=== PATIENT | female | born 1985 | race Caucasian/White ===

== ENCOUNTER 2020-06-28 08:59 | Emergency (ER) | payer OTHER ==
[~2020-06-28] VITALS: Ht 157.5 cm; Wt 63.6 kg
[2020-06-28 09:19] VITALS: Ht 157.5 cm; Wt 63.6 kg
[2020-06-28] MEDS ORDERED: NYSTATIN100000 UN4 PO (10:13)
[2020-06-28 10:42] VITALS: BP 114/76
== END 2020-06-28 10:43 | disposition home or self-care (01) ==
LOC: D.ER 08:59
DX: B35.3 Tinea pedis (principal)